=== PATIENT | male | born 1975 | race Caucasian/White ===

== ENCOUNTER 2019-02-04 12:34 | Emergency (ER) | payer OTHER ==
[~2019-02-04] VITALS: Ht 187.9 cm; Wt 122.5 kg
[~2019-02-04 12:34] MED LIST: FISH OIL 10001000 MG PO; FISH OIL500 M1 PO; LOSARTAN POTASS1 TA6 PO; MIRALAX POWDER17 G1 PO; NIASPAN500 MG PO; PERCOCET 325 MG1 TA2 PO; PRILOSEC20 MG PO; TOPROL XL50 MG PO; TRICOR145 MG PO; ZOFRAN ODT4 MG SL
[2019-02-04] MEDS ORDERED: SEPTDS PO (13:13)
== END 2019-02-04 14:14 | disposition home or self-care (01) ==
LOC: ED 12:34
DX: S61.210A Laceration without foreign body of right index finger without damage to nail, initial encounter (principal); Z88.0 Allergy status to penicillin; Z79.899 Other long term (current) drug therapy; W27.0XXA Contact with workbench tool, initial encounter; Y93.89 Activity, other specified; Y92.098 Other place in other non-institutional residence as the place of occurrence of the external cause; Y99.8 Other external cause status

== ENCOUNTER → 2020-06-05 | Outpatient (CLI) | payer BC ==
[~2020-06-05] MED LIST changes: +SEPTDS PO
== END | disposition home or self-care (01) ==
LOC: COVID19 13:54
PROVIDERS: ATTEND Internal Medicine
DX: Z20.822 Contact with and (suspected) exposure to COVID-19 (principal)

== ENCOUNTER → 2021-06-26 | Outpatient (CLI) | payer BC | END | disposition home or self-care (01) | LOC: COVID19 16:31 | PROVIDERS: ATTEND Family Medicine | DX: Z20.822 Contact with and (suspected) exposure to COVID-19 (principal) ==